=== PATIENT | female | born 1960 | race Caucasian/White ===

== ENCOUNTER 2023-02-12 10:08 | Outpatient (CLI) | payer BC, MEDICAID ==
--- NOTE | 2023-02-12 10:24 | XRAY Report ---
PROCEDURE: Cervical Spine 2 View INDICATIONS: NECK PAIN TECHNIQUE: 3 view(s) of the cervical spine were acquired. COMPARISON: None. FINDINGS: Bones: No fractures or dislocations to the T1 level. The lateral masses of C1 appear intact on the odontoid view. No suspicious bony lesions. Reversal normal cervical lordosis associated with disc s pace narrowing and osteophytes noted lower cervical spine. Normal bone mineralization and cranioverte bral relationships. Soft tissues: No prevertebral soft tissue swelling. IMPRESSION: Degenerative changes without fracture or malalignment Reviewed by: Ruel Levine MD on 02/12/2023 9:23 AM GURPREET Approved by: Ruel Levine MD on 02/12/2023 9:23 AM GURPREET Station ID: [id number]
== END 2023-02-12 23:59 | disposition home or self-care (01) ==
LOC: DI.S 10:08
PROVIDERS: ATTEND Physician Assistant Medical
DX: M47.22 Other spondylosis with radiculopathy, cervical region (principal)

== ENCOUNTER 2023-04-14 12:36 | Outpatient (CLI) | payer BC ==
[2023-04-14 14:28] LABS: BASOPHILS % (AUTO) 1.2 %; EOSINOPHILS # (AUTO) 0.2 10^3/uL (0.0-0.7); EOSINOPHILS % (AUTO) 5.4 %; HCT - HEMATOCRIT 39.7 % (37.0-47.0); HGB - HEMOGLOBIN 12.8 g/dL (12.0-16.0); LYMPHOCYTES # (AUTO) 1.4 10^3/uL (1.5-3.5); LYMPHOCYTES % (AUTO) 42.5 %; MEAN CORPUSCULAR HEMOGLOBIN 30.8 pg (27.0-31.0); MEAN CORPUSCULAR HGB CONC 32.2 g/dL (32.0-36.0); MEAN CORPUSCULAR VOLUME 95.7 fL (81.0-99.0); MEAN PLATELET VOLUME 12.1 fL (7.9-10.8); MONOCYTES # (AUTO) 0.2 10^3/uL (0.0-1.0); MONOCYTES % (AUTO) 6.6 %; NEUTROPHILS # (AUTO) 1.5 10^3/uL (1.5-6.6); NEUTROPHILS % (AUTO) 44.3 %; PLT - PLATELET COUNT 251 10^3/uL (130-450); RED BLOOD COUNT 4.15 10^6/uL (4.20-5.40); RED CELL DISTRIBUTION WIDTH 12.9 % (12.0-15.0); WHITE BLOOD COUNT 3.3 x10^3/uL (4.8-10.8)
[2023-04-14 14:47] LABS: ALBUMIN 4.1 g/dL (3.2-5.5); ALBUMIN/GLOBULIN RATIO 1.6 (1.0-2.2); ALKALINE PHOSPHATASE 66 IU/L (42-121); ALT ALANINE AMINOTRANSFERASE 15 IU/L (10-60); AST ASPARTATE AMINOTRANSFERASE 18 IU/L (10-42); BILIRUBIN,TOTAL 0.3 mg/dL (0.2-1.0); BUN - BLOOD UREA NITROGEN 14 mg/dL (6-20); CALCIUM 9.5 mg/dL (8.5-10.3); CARBON DIOXIDE - CO2 27 mmol/L (21-32); CHLORIDE 108 mmol/L (101-111); CHOL/HDL RATIO 3.1 (<4.4); CHOLESTEROL 208 mg/dL; CREATININE 0.7 mg/dL (0.6-1.3); GFR - MDRD 85 (>89); GLUCOSE 92 mg/dL (74-104); HDL CHOLESTEROL 67 mg/dL; LDL CHOLESTEROL,CALCULATED 113 mg/dL; LDL/HDL RATIO 1.7 (<4.4); POTASSIUM 3.9 mmol/L (3.5-4.5); SODIUM 139 mmol/L (135-145); TOTAL PROTEIN 6.7 g/dL (6.4-8.9); TRIGLYCERIDES 138 mg/dL (48-352); VLDL CHOLESTEROL 28 mg/dL
[2023-04-14 15:00] LABS: THYROID STIMULATING HORMONE 2.19 uIU/mL (0.34-5.60)
== END 2023-04-14 12:37 | disposition home or self-care (01) ==
LOC: LAB.S 12:36
PROVIDERS: ATTEND Nurse Practitioner Acute Care
DX: Z13.29 Encounter for screening for other suspected endocrine disorder (principal); Z13.228 Encounter for screening for other metabolic disorders; Z13.220 Encounter for screening for lipoid disorders; Z13.0 Encounter for screening for diseases of the blood and blood-forming organs and certain disorders involving the immune mechanism
CPT/HCPCS: 36415; 80053; 80061; 83721; 84443; 85025

== ENCOUNTER 2024-03-21 08:11 | Outpatient (CLI) | payer BC ==
--- NOTE | 2024-03-21 18:59 | MRI Report ---
PROCEDURE: Cervical Spine WO INDICATIONS: NECK PAIN TECHNIQUE: Noncontrast sagittal T1 spin echo and T2 fast spin echo, sagittal STIR, foraminal oblique sagittal T2 fast spin echo, and axial gradient echo or T2 fast spin echo through the cervical spine. COMPARISON: X-ray cervical spine 02/12/2023. FINDINGS: Image quality: Excellent. Alignment and Curvature: Straightening and mild reversal of the normal cervical lordosis. Mild noe listhesis of C4 on C5 and mild retrolisthesis of C5 on C6.. Bone Marrow: Marrow demonstrates normal overall signal. Spinal Cord: Visualized spinal cord has normal size and signal. No cerebellar tonsillar herniation. Paraspinous Soft Tissues: No paravertebral masses. Prevertebral soft tissues are normal in thicknes s. C2-C3: No central canal stenosis. Facet and uncovertebral arthropathy. No significant neuroforaminal stenosis. C3-C4: Disc desiccation. Minimal posterior loss with complex. No significant central canal stenosis . Facet and uncovertebral arthropathy. Severe left and no significant right neuroforaminal stenosis. C4-C5: Disc desiccation and mild height loss. Mild posterior disc ossify complex. No significant odessa tral canal stenosis. Facet and uncovertebral arthropathy. Moderate left and mild right neuroforaminal stenosis. C5-C6: Disc desiccation and height loss. Mild posterior disc ossify complex. No significant central canal stenosis. Facet and uncovertebral arthropathy. Severe left and moderate right neuroforaminal st enosis. C6-C7: Disc desiccation and posterior disc ossify complex. No significant central canal stenosis. Fa cet and uncovertebral arthropathy. Moderate to severe bilateral neuroforaminal stenosis. Small right perineural cyst. C7-T1: Disc desiccation. No central canal stenosis. Facet and uncovertebral arthropathy. No signific ant neuroforaminal stenosis. Right perineural cyst. IMPRESSION: 1.Multilevel degenerative changes of the cervical spine as described above. 2.Severe neuroforaminal stenosis on the left at C3-C4, left at C5-C6 and moderate to severe bilateral neuroforaminal stenosis at C6-C7. 3.No severe central canal stenosis throughout. Reviewed by: Antolin Stratton MD on 03/21/2024 6:58 PM PDT Approved by: Antolin Stratton MD on 03/21/2024 6:58 PM PDT Station ID: [id number]
== END 2024-03-21 08:12 | disposition home or self-care (01) ==
LOC: DI 08:11
PROVIDERS: ATTEND Physical Medicine & Rehabilitation
DX: M47.812 Spondylosis without myelopathy or radiculopathy, cervical region (principal); M50.31 Other cervical disc degeneration, high cervical region; M48.02 Spinal stenosis, cervical region